=== PATIENT | female | born 1945 | race Caucasian/White ===

== ENCOUNTER 2020-09-23 10:20 | Outpatient (CLI) | payer MEDICARE | END 2020-09-23 10:21 | disposition home or self-care (01) | LOC: CSHCT 10:20 | PROVIDERS: ATTEND Specialist | DX: M51.17 Intervertebral disc disorders with radiculopathy, lumbosacral region (principal); M47.816 Spondylosis without myelopathy or radiculopathy, lumbar region; M48.061 Spinal stenosis, lumbar region without neurogenic claudication; M48.07 Spinal stenosis, lumbosacral region | CPT/HCPCS: 72131 ==

== ENCOUNTER 2021-05-03 12:02 | Outpatient (CLI) | payer MEDICARE | END 2021-05-03 12:03 | disposition home or self-care (01) | LOC: CSHMAMMO 12:02 | PROVIDERS: ATTEND Physician Assistant | DX: Z12.31 Encounter for screening mammogram for malignant neoplasm of breast (principal); Z80.3 Family history of malignant neoplasm of breast | CPT/HCPCS: 77063; 77067 ==

== ENCOUNTER 2021-11-21 13:20 | Inpatient (IN) | payer MEDICARE ==
[2021-11-21 14:17] LABS: #Eosinphils 0.1 10x3/uL (0.0-0.5); #Monocytes 0.9 10x3/uL (0.0-1.1); #Neutrophils 4.2 10x3/uL (1.5-8.4); %Basophils 0.5 % (0.0-2.0); %Eosinophils 1.7 % (0.0-6.0); %Lymphocytes 31.4 % (18.0-47.0); %Monocytes 11.9 % (0.0-10.0); %Neutrophils 54.2 % (40.0-75.0); Hemoglobin 12.9 g/dL (12.0-15.5); Mean Corpuscular HGB CONC 34.5 g/dL (32.0-36.0); Mean Corpuscular Hemoglobin 27.2 pg (27.0-33.0); Mean Corpuscular Volume 78.9 fl (81.6-98.3); Mean Platelet Volume 9.5 fl (7.4-10.4); Platelet Count 256 10x3/uL (150-450); RBC Distribution Width 17.5 % (11.5-14.5); Red Blood Cell (RBC) Count 4.74 10x6/uL (3.90-5.03); White Blood Cell (WBC) Count 7.7 10x3/uL (3.5-10.5)
[2021-11-21] MEDS ORDERED: hydrALAZINE 20 MG/ML VIAL ONE (14:17)
[2021-11-21 14:38] LABS: ALT (SGPT) 19 U/L (8-55); AST (SGOT) 19 U/L (5-34); Albumin 4.4 g/dL (3.4-4.8); Alkaline Phosphatase 83 U/L (40-110); Anion Gap 18 mmol/L (10-20); BUN (Urea Nitrogen) 18 mg/dL (9.8-20.1); Bilirubin, Total 0.4 mg/dL (0.2-1.2); Calc. Creatinine Clearance 0 mL/min (70-130); Carbon Dioxide 20 mmol/L (23-31); Chloride 104 mmol/L (98-107); Glucose 126 mg/dL (83-110); Potassium 3.7 mmol/L (3.5-5.1); Protein, Total 7.4 g/dL (5.8-8.1); Sodium 138 mmol/L (136-145)
[2021-11-21] MEDS ORDERED: Morphine 2 MG/ML VIAL ONE (15:40)
[2021-11-21] MEDS ORDERED: Labetalol HCl 100 MG/20 ML VIAL ONE (16:28)
[2021-11-21] MEDS ORDERED: Ondansetron ODT 4 MG TAB PO PRN (17:02)
[2021-11-21 17:04] LABS: SARS-CoV-2 NAA Rapid Test Not Detected (NotDetected)
[2021-11-21 17:09] LABS: Troponin I Less than 0.010 ng/mL (< 0.028)
[2021-11-21 17:35] VITALS: BMI 32.5
[2021-11-21] MEDS ORDERED: Aspirin/APAP/Caffeine Tab (Excedrin Migraine) PO PRN (17:50)
[2021-11-21] MEDS ORDERED: Acetaminophen 500 MG TAB PO PRN (17:50)
[2021-11-21] MEDS: Fish Oil 1,000 MG CAP PO SCH (20:05)
[2021-11-21] MEDS: Acetaminophen 325 MG TAB PO PRN (20:45)
[2021-11-21] MEDS ORDERED: Atorvastatin Calcium 10 MG TAB PO SCH (21:00)
[2021-11-21] MEDS ORDERED: MELATONIN 10 MG PO SCH (21:00)
[2021-11-21 21:28] LABS: Troponin I Less than 0.010 ng/mL (< 0.028)
[2021-11-21] MEDS ORDERED: traZODone HCl 50 MG TAB PO SCH (22:45)
[2021-11-22 04:47] LABS: #Basophils 0.1 10x3/uL (0.0-0.2); #Eosinphils 0.1 10x3/uL (0.0-0.5); #Monocytes 0.8 10x3/uL (0.0-1.1); #Neutrophils 3.7 10x3/uL (1.5-8.4); %Basophils 0.6 % (0.0-2.0); %Eosinophils 1.7 % (0.0-6.0); %Lymphocytes 41.1 % (18.0-47.0); %Monocytes 10.5 % (0.0-10.0); %Neutrophils 45.9 % (40.0-75.0); Hemoglobin 12.3 g/dL (12.0-15.5); Mean Corpuscular HGB CONC 33.8 g/dL (32.0-36.0); Mean Corpuscular Hemoglobin 26.1 pg (27.0-33.0); Mean Corpuscular Volume 77.3 fl (81.6-98.3); Mean Platelet Volume 9.2 fl (7.4-10.4); Platelet Count 251 10x3/uL (150-450); RBC Distribution Width 17.3 % (11.5-14.5); Red Blood Cell (RBC) Count 4.71 10x6/uL (3.90-5.03)
[2021-11-22 05:13] LABS: Anion Gap 19 mmol/L (10-20); BUN (Urea Nitrogen) 21 mg/dL (9.8-20.1); Calc. Creatinine Clearance 65 mL/min (70-130); Calcium 10.6 mg/dL (7.8-10.44); Carbon Dioxide 23 mmol/L (23-31); Chloride 101 mmol/L (98-107); Glucose 123 mg/dL (83-110); Potassium 3.7 mmol/L (3.5-5.1); Sodium 139 mmol/L (136-145)
[2021-11-22] MEDS: Acetaminophen 325 MG TAB PO PRN (08:42)
[2021-11-22] MEDS: Aspirin 81 mg Enteric Coated Tablet PO SCH (08:42)
[2021-11-22] MEDS: Loratadine 10 MG TAB PO SCH (08:43)
[2021-11-22] MEDS: Clopidogrel Bisulfate 75 MG TAB PO SCH (08:43)
[2021-11-22] MEDS: Calcium Carbonate 600 MG TAB PO SCH (08:45)
[2021-11-22] MEDS: Triamterene/Hydrochlorothiazide 37.5 mg/25 mg Tablet PO SCH (08:46)
[2021-11-22] MEDS: Atenolol 50 MG TAB PO SCH (08:46)
[2021-11-22] MEDS ORDERED: Estrogens, Conjugated 0.3 MG TAB PO SCH (18:00)
[2021-11-22] MEDS: [UNRECOGNIZED DRUG - OTHER] PO SCH (19:45)
[2021-11-22] MEDS ORDERED: Atorvastatin Calcium 10 MG TAB PO SCH (21:00)
[2021-11-22] MEDS ORDERED: Montelukast Sodium 10 mg Tablet PO SCH (21:00)
[2021-11-22] MEDS: Fish Oil 1,000 MG CAP PO SCH (21:16)
[2021-11-23 05:13] LABS: #Basophils 0.1 10x3/uL (0.0-0.2); #Eosinphils 0.2 10x3/uL (0.0-0.5); #Monocytes 1.2 10x3/uL (0.0-1.1); #Neutrophils 3.9 10x3/uL (1.5-8.4); %Basophils 0.7 % (0.0-2.0); %Eosinophils 2.9 % (0.0-6.0); %Lymphocytes 32.7 % (18.0-47.0); %Monocytes 14.4 % (0.0-10.0); %Neutrophils 48.9 % (40.0-75.0); Hemoglobin 13.1 g/dL (12.0-15.5); Mean Corpuscular HGB CONC 34.4 g/dL (32.0-36.0); Mean Corpuscular Hemoglobin 26.9 pg (27.0-33.0); Mean Corpuscular Volume 78.2 fl (81.6-98.3); Mean Platelet Volume 8.8 fl (7.4-10.4); Platelet Count 236 10x3/uL (150-450); RBC Distribution Width 17.7 % (11.5-14.5); Red Blood Cell (RBC) Count 4.87 10x6/uL (3.90-5.03); White Blood Cell (WBC) Count 8.1 10x3/uL (3.5-10.5)
[2021-11-23 05:23] LABS: Anion Gap 19 mmol/L (10-20); BUN (Urea Nitrogen) 20 mg/dL (9.8-20.1); Calc. Creatinine Clearance 67 mL/min (70-130); Calcium 10.4 mg/dL (7.8-10.44); Carbon Dioxide 24 mmol/L (23-31); Chloride 100 mmol/L (98-107); Estimated GFR 64; Glucose 102 mg/dL (83-110); Sodium 139 mmol/L (136-145)
[2021-11-23] MEDS: Atenolol 50 MG TAB PO SCH (07:19)
[2021-11-23] MEDS: Aspirin 81 mg Enteric Coated Tablet PO SCH (07:19)
[2021-11-23] MEDS ORDERED: Heparin 10,000 UNITS/ 10 ML VIAL ONE (07:26)
[2021-11-23] MEDS ORDERED: Nitroglycerin 50 MG/250 ML BOT 250 ML ONE (07:26)
[2021-11-23] MEDS ORDERED: Bivalirudin 250 MG VIAL ONE (07:27)
[2021-11-23] MEDS ORDERED: Verapamil 5 MG/2 ML VIAL ONE (07:27)
[2021-11-23] MEDS ORDERED: Adenosine 6 MG/2 ML VIAL ONE (07:27)
[2021-11-23] MEDS ORDERED: Lidocaine 1% MPF 2 ML VIAL ONE (07:28)
[2021-11-23] MEDS ORDERED: Fentanyl 100 MCG/2 ML VIAL ONE (07:29)
[2021-11-23] MEDS ORDERED: Midazolam HCl 2 mg/2 ml Vial ONE (08:30)
[2021-11-23] MEDS ORDERED: Nitroglycerin 0.4 MG TAB (25 Tab Bottle) SL PRN (08:50)
[2021-11-23] MEDS ORDERED: Sodium Chloride 0.9% 200 ML IV PRN (08:50)
[2021-11-23] MEDS ORDERED: Estrogens, Conjugated 0.3 MG TAB PO SCH ×2 (09:00→10:30)
[2021-11-23] MEDS: Loratadine 10 MG TAB PO SCH (09:55)
[2021-11-23] MEDS: Calcium Carbonate 600 MG TAB PO SCH (09:56)
[2021-11-23] MEDS: Clopidogrel Bisulfate 75 MG TAB PO SCH (09:57)
[2021-11-23] MEDS: Triamterene/Hydrochlorothiazide 37.5 mg/25 mg Tablet PO SCH (09:57)
[2021-11-23 12:48] VITALS: BP 179/79; TEMP 96.5
[2021-11-23] MEDS ORDERED: Iopamidol 300 61% 100 ML VIAL FS ONE (14:43)
[2021-11-23] MEDS ORDERED: Isosorbide Dinitrate 10 MG TAB PO SCH (21:00)
[2021-11-24] MEDS ORDERED: Estrogens, Conjugated 0.3 MG TAB PO SCH (09:00)
== END 2021-11-23 16:08 | disposition home or self-care (01) | DRG 287 ==
LOC: CSHERS 13:20 → INTOOBSV 17:14 → OBSVTOIN 17:14 → CSHIMCU 17:14 → CSHTELE 21:40
PROVIDERS: ADMIT Internal Medicine; ATTEND Internal Medicine
PROC: 4A023N7 Measurement of Cardiac Sampling and Pressure, Left Heart, Percutaneous Approach (ICD-10-PCS; principal; 2021-11-23)
PROC: B2111ZZ Fluoroscopy of Multiple Coronary Arteries using Low Osmolar Contrast (ICD-10-PCS; 2021-11-23)
PROC: B2151ZZ Fluoroscopy of Left Heart using Low Osmolar Contrast (ICD-10-PCS; 2021-11-23)
DX: R07.9 Chest pain, unspecified (principal); I25.10 Atherosclerotic heart disease of native coronary artery without angina pectoris; I10 Essential (primary) hypertension; E78.5 Hyperlipidemia, unspecified; M19.90 Unspecified osteoarthritis, unspecified site; R51.9 Headache, unspecified; K21.9 Gastro-esophageal reflux disease without esophagitis; G89.29 Other chronic pain; M54.9 Dorsalgia, unspecified; J45.909 Unspecified asthma, uncomplicated; R00.1 Bradycardia, unspecified; Z20.822 Contact with and (suspected) exposure to COVID-19; Z96.641 Presence of right artificial hip joint; Z88.8 Allergy status to other drugs, medicaments and biological substances; Z95.5 Presence of coronary angioplasty implant and graft; Z91.09 Other allergy status, other than to drugs and biological substances; Z88.1 Allergy status to other antibiotic agents; Z98.890 Other specified postprocedural states; Z79.899 Other long term (current) drug therapy; Z79.82 Long term (current) use of aspirin; Z79.01 Long term (current) use of anticoagulants; Z72.89 Other problems related to lifestyle; Z80.3 Family history of malignant neoplasm of breast; Z84.89 Family history of other specified conditions; Z82.49 Family history of ischemic heart disease and other diseases of the circulatory system; Z90.49 Acquired absence of other specified parts of digestive tract; Z90.710 Acquired absence of both cervix and uterus; Z98.1 Arthrodesis status; Z88.5 Allergy status to narcotic agent; I25.2 Old myocardial infarction; Z88.0 Allergy status to penicillin; Z79.02 Long term (current) use of antithrombotics/antiplatelets
CPT/HCPCS: 36415; 71045; 80048; 80053; 83880; 84484; 85025; 85379; 93005; 93458; 94760; 96374; 96375; 99152; C1769; C1894; J0153; J0360; J0583; J1644; J2250; J2270; J3010; Q9967; U0002

== ENCOUNTER 2023-05-31 08:29 | Day surgery (SDC) | payer MEDICARE ==
[2023-05-31 09:01] VITALS: BP 152/72; TEMP 98.7
[2023-05-31] MEDS ORDERED: FLU VACC QS2023(65UP)/MF59C/PF 60 MCG/0.5 ML SYRINGE IM ONE (09:30)
[2023-05-31] MEDS ORDERED: Iopamidol-M 300 61% 15 ML VIAL ONE (13:37)
== END 2023-05-31 10:31 | disposition home or self-care (01) ==
LOC: CSHRAD 08:29
PROVIDERS: ATTEND Specialist
PROC: B00BYZZ Plain Radiography of Spinal Cord using Other Contrast (ICD-10-PCS; principal; 2023-05-31)
DX: M54.14 Radiculopathy, thoracic region (principal); M54.12 Radiculopathy, cervical region; I10 Essential (primary) hypertension; K21.9 Gastro-esophageal reflux disease without esophagitis; E78.00 Pure hypercholesterolemia, unspecified; J45.909 Unspecified asthma, uncomplicated; I25.2 Old myocardial infarction; G90.9 Disorder of the autonomic nervous system, unspecified; D50.9 Iron deficiency anemia, unspecified; G89.4 Chronic pain syndrome; M16.12 Unilateral primary osteoarthritis, left hip; Z90.710 Acquired absence of both cervix and uterus; Z98.890 Other specified postprocedural states; Z79.899 Other long term (current) drug therapy
CPT/HCPCS: 62305; 72126; 72129; Q9967